=== PATIENT | female | born 1980 | race Caucasian/White ===

== ENCOUNTER → 2024-08-29 15:53 | Outpatient (REF) | payer OTHER, SELFPAY | LOC: RAD 15:53 | PROVIDERS: ATTENDING PHYSICIAN Emergency Medicine | DX: R05.3 Chronic cough (principal) | CPT/HCPCS: 71046 ==

== ENCOUNTER → 2025-07-07 07:23 | Outpatient (REF) | payer OTHER, SELFPAY ==
[2025-07-07 08:52] LABS: Hematocrit 46.1 % (37.0-47.0); Hemoglobin 14.8 g/dL (12.0-16.0); Mean Corp Hgb Conc. 32.1 g/dL (33.0-37.0); Mean Corpuscular Volume 95.1 fL (81.0-99.0); Nucleated Red Blood Cells % 0 %; Platelet Count 257 10^3/uL (130-400); Red Cell Dist. Width 12.5 % (11.5-14.5)
[2025-07-07 09:17] LABS: ALT (SGPT) 20 U/L (0-35); AST (SGOT) 23 U/L (14-36); Albumin 4.3 g/dl (3.5-5.0); Alkaline Phosphatase 49 U/L (38-126); Blood Urea Nitrogen 10 mg/dl (7-17); Calcium 9.1 mg/dl (8.4-10.2); Carbon Dioxide 26 mmol/L (22-30); Chloride 104 mmol/L (98-107); Glucose 90 mg/dl (70-99); Potassium 4.1 mmol/L (3.5-5.1); Sodium 138 mmol/L (135-145); Total Protein 6.7 g/dl (6.3-8.2); eGFR > 60.00
[2025-07-07 09:45] LABS: Ferritin 133.0 ng/ml (6.24-137)
[2025-07-07 10:28] LABS: Vitamin D, 25-OH*** 37.8 ng/mL (30-80)
[2025-07-07 11:10] LABS: Glycohemoglobin (HgbA1c) 5.1 % (4.0-5.9)
[2025-07-07 11:36] LABS: Lyme Antibody Screen, EIA Negative (Negative)
[2025-07-08 20:24] LABS: EBV-EA (D) Ab IgG <5.0 U/mL (<=8.9); EBV-NA IgG <3.0 U/mL (<=17.9); EBV-VCA IgG Antibodies 496.0 U/mL (<=17.9); EBV-VCA IgM Antibodies 36.1 U/mL (<=35.9)
== END ==
LOC: REG 07:23
DX: R53.83 Other fatigue (principal); R06.00 Dyspnea, unspecified
CPT/HCPCS: 36415; 80053; 82306; 82728; 83036; 84443; 85025; 85652; 86480; 86618; 86663; 86664; 86665